=== PATIENT | male | born 1940 | race Caucasian/White ===

== ENCOUNTER 2018-05-03 09:43 | Day surgery (SDC) | payer OTHER ==
[~2018-05-03 09:43] MED LIST: DICLOFENAC POTA50 MG PO; PEPCID40 MG PO
== END 2018-05-03 18:20 | disposition home or self-care (01) ==
LOC: CIR.AMB 09:43
DX: K60.1 Chronic anal fissure (principal); K62.4 Stenosis of anus and rectum; K64.4 Residual hemorrhoidal skin tags

== ENCOUNTER 2024-09-24 10:15 | Inpatient (IN) | payer OTHER ==
[~2024-09-24] VITALS: Ht 170.2 cm; Wt 78.5 kg
[2024-09-24] MEDS ORDERED: MULTIPLE VITAM1 EAC2 PO (11:41)
[2024-09-24] MEDS ORDERED: LIPITOR20 MG PO (11:41)
[2024-09-24 11:42] VITALS: BP 156/75
[2024-10-01] MEDS ORDERED: LIDOCAINE HCL 1%/EPINEPHRINE 20ML VIAL IJ ONE ×2 (11:13→12:30)
[2024-10-01] MEDS ORDERED: BUPIVACAINE HCL/MPF 0.5% 30ML VIAL ONE (11:13)
[2024-10-01] MEDS ORDERED: CEFTRIAXONE SODIUM 2,000 MG VIAL ONE (11:14)
[2024-10-01] MEDS ORDERED: METRONIDAZOLE/SODIUM CHLORIDE 500 MG/100 ML PIGGYBACK IV ONE ×2 (11:14→12:30)
[2024-10-01] MEDS ORDERED: BUPIVACAINE HCL 30 ML VIAL IJ ONE (12:30)
[2024-10-01] MEDS ORDERED: CEFTRIAXONE SODIUM 2,000 MG VIAL IV ONE (12:30)
[2024-10-01] MEDS ORDERED: SUGAMMADEX SODIUM 200 MG/2 ML VIAL IV ONE (12:50)
[2024-10-01] MEDS ORDERED: MORPHINE SULFATE 4 MG/ML CARTRIDGE IV PRN (14:45)
[2024-10-01] MEDS ORDERED: RINGERS SOLUTION,LACTATED 1,000 ML IV SCH (14:45)
[2024-10-01] MEDS ORDERED: ONDANSETRON HCL 2 MG/ML VIAL IV PRN (14:45)
[2024-10-01] MEDS ORDERED: OxyCODONE HCL 5 MG TABLET (ROXICODONE) PO PRN (14:45)
[2024-10-01] MEDS ORDERED: DEXTROSE 50 % IN WATER 0.5 G/ML DISP.SYRIN IV PRN (14:45)
[2024-10-01] MEDS ORDERED: MORPHINE SULFATE 4 MG/ML VIAL IV ONE ×2 (15:20→16:05)
[2024-10-01] MEDS ORDERED: METOCLOPRAMIDE HCL 5 MG/ML VIAL IV SCH (17:00)
[2024-10-01] MEDS ORDERED: POLYETHYLENE GLYCOL 3350 17 GM BLIST.PACK PO SCH (17:00)
[2024-10-01] MEDS ORDERED: SIMETHICONE 125 MG CAPSULE PO SCH (17:00)
[2024-10-01] MEDS ORDERED: HYOSCYAMINE SULFATE 0.125 MG TAB.SUBL SL SCH (17:00)
[2024-10-01] MEDS ORDERED: GABAPENTIN 300 MG CAPSULE PO SCH (17:00)
[2024-10-01 17:32] LABS: HEMATOCRIT 41.4 % (39.0-48.0); HEMOGLOBIN 13.8 g/dL (13-16.00); MEAN CORPUSCULAR HEMOGLOBIN 29.1 pg (27.00-32.0); MEAN CORPUSCULAR HGB CONC 33.4 g/dl (32.0-36.0); PLATELET COUNT 220 K/uL (150-450); RED BLOOD COUNT 4.76 M/uL (4.00-6.00); RED CELL DISTRIBUTION WIDTH 14.6 % (11.5-14.5)
[2024-10-01 18:35] VITALS: BP 156/75; O2SAT 97
[2024-10-01] MEDS ORDERED: ACETAMINOPHEN 500 MG GEL..CAP PO SCH (20:00)
[2024-10-01] MEDS ORDERED: FAMOTIDINE/PF 20 MG/2 ML VIAL IV PUSH SCH (21:00)
[2024-10-01] MEDS ORDERED: CELECOXIB 200 MG CAPSULE PO SCH (21:00)
[2024-10-02 00:14] VITALS: BP 118/64; O2SAT 97
[2024-10-02 07:11] LABS: HEMATOCRIT 39.3 % (39.0-48.0); HEMOGLOBIN 13.1 g/dL (13-16.00); MEAN CELL VOLUME 86.3 fL (80.0-100.00); MEAN CORPUSCULAR HEMOGLOBIN 28.8 pg (27.00-32.0); MEAN CORPUSCULAR HGB CONC 33.4 g/dl (32.0-36.0); PLATELET COUNT 219 K/uL (150-450); RED BLOOD COUNT 4.55 M/uL (4.00-6.00); RED CELL DISTRIBUTION WIDTH 14.5 % (11.5-14.5)
[2024-10-02 07:29] LABS: ALBUMIN 2.5 gm/dL (3.4-5.0); CALCIUM 8.5 mg/dL (8.5-10.1); CREATININE SERUM 1.1 mg/dL (0.70-1.30); GFR 63.77; MAGNESIUM 1.9 mg/dL (1.8-2.4); PHOSPHOROUS 3.5 mg/dL (2.5-4.9); POTASSIUM 4.56 mEq/L (3.5-5.1)
[2024-10-02 08:00] VITALS: BP 129/69; O2SAT 98
[2024-10-02] MEDS ORDERED: LACTOBACILLUS ACIDOPHILUS 1 CAP CAP PO SCH (09:00)
[2024-10-02] MEDS ORDERED: ATORVASTATIN CALCIUM 20 MG TABLET PO SCH (17:00)
[2024-10-02] MEDS ORDERED: ENOXAPARIN SODIUM 40 MG/0.4 ML SYRINGE SUBCUTANEO SCH (17:00)
[2024-10-02 17:11] VITALS: BP 107/63; O2SAT 97
[2024-10-03 00:47] VITALS: BP 106/60; O2SAT 96
[2024-10-03 07:31] LABS: HEMOGLOBIN 11.7 g/dL (13-16.00); MEAN CELL VOLUME 87.8 fL (80.0-100.00); MEAN CORPUSCULAR HEMOGLOBIN 29.3 pg (27.00-32.0); MEAN CORPUSCULAR HGB CONC 33.3 g/dl (32.0-36.0); PLATELET COUNT 186 K/uL (150-450); RED BLOOD COUNT 3.99 M/uL (4.00-6.00); RED CELL DISTRIBUTION WIDTH 14.2 % (11.5-14.5)
[2024-10-03 08:13] LABS: CALCIUM 8.5 mg/dL (8.5-10.1); CREATININE SERUM 0.98 mg/dL (0.70-1.30); GFR 72.87; MAGNESIUM 1.8 mg/dL (1.8-2.4); PHOSPHOROUS 2.4 mg/dL (2.5-4.9)
[2024-10-03 08:22] VITALS: BP 97/58; O2SAT 97
[2024-10-03] MEDS ORDERED: ENOXAPARIN SODIUM 40 MG/0.4 ML SYRINGE SUBCUTANEO SCH (09:00)
[2024-10-03] MEDS ORDERED: POTASSIUM PHOS,M-BASIC-D-BASIC 3 MM/ML VIAL IV NR (12:00)
[2024-10-03 16:00] VITALS: BP 135/75; O2SAT 95
[2024-10-04 00:36] VITALS: BP 128/71; O2SAT 96
[2024-10-04] MEDS ORDERED: LEVSIN/SL0.125 MG SL (07:31)
[2024-10-04] MEDS ORDERED: CELECOXIB200 MG PO (07:31)
[2024-10-04] MEDS ORDERED: INTESTINEX680 M1 PO (07:31)
[2024-10-04] MEDS ORDERED: AMOX-CLAV 875-1 EACH PO (07:54)
[2024-10-04] MEDS ORDERED: SOD FERRIC GLUC COMPLX/SUCROSE 62.5 MG in 0.9 % SODIUM CHLORIDE 50 ML IV SCH (09:00)
[2024-10-04] MEDS ORDERED: Cyanocobalamin/Mecobalamin 1 TAB.SL SL SCH (09:00)
[2024-10-04 10:19] VITALS: BP 142/73; O2SAT 97
== END 2024-10-04 13:31 | disposition home or self-care (01) | DRG 331 ==
LOC: SURH 10-01 09:30 → O/R 10-01 09:40 → SURH 10-01 10:15 → SURG 10-01 15:23
PROVIDERS: Internal Medicine Geriatric Medicine; ADMIT Surgery; ATTEND Surgery
PROC: 0DBP4ZZ Excision of Rectum, Percutaneous Endoscopic Approach (ICD-10-PCS; 2024-10-01)
PROC: 0DTN4ZZ Resection of Sigmoid Colon, Percutaneous Endoscopic Approach (ICD-10-PCS; principal; 2024-10-01 09:30)
DX: K92.2 Gastrointestinal hemorrhage, unspecified (principal); K64.2 Third degree hemorrhoids; K57.30 Diverticulosis of large intestine without perforation or abscess without bleeding; K59.09 Other constipation; K59.02 Outlet dysfunction constipation